=== PATIENT | female | born 1970 | race Caucasian/White ===

== ENCOUNTER 2021-12-01 18:23 | Emergency (ER) | payer OTHER, SELFPAY ==
[2021-12-01 18:30] VITALS: BP 146/87; PULSE 69; RESP 16; TEMP 36.7; O2SAT 98
--- NOTE | 2021-12-01 18:45 | ED.FEMALEGU ---
HPI - Female Genitourinary General Chief complaint: Urogenital-Female Stated complaint: poss UTI Time Seen by Provider: 12/01/21 18:45 Source: patient, RN notes reviewed and old records reviewed Mode of arrival: ambulatory Limitations: no limitations History of Present Illness HPI Narrative: 51 year old female who presents to [facility] care with complaints of having symptoms of UTI last night. Patient reports that frequency of urination, some burning with urination and some perineal pressure. Patient reports that she doesn't feel like she is emptying her bladder and she also has been having some right lower back pain which she rates as sharp rates pain 6-7. Patient denies any nausea or vomiting or diarrhea, denies any known fevers or chills. MD elicited complaint: dysuria and back pain Pertinent past history: other (uti) Severity scale (1-10): 6 Related Data Home Medications Medication Instructions Recorded Confirmed cetirizine 10 mg tablet (Zyrtec) 10 mg PO DAILY 12/01/21 12/01/21 minocycline 50 mg capsule 50 mg PO DAILY 12/01/21 12/01/21 montelukast 10 mg tablet 10 mg PO POST-TRANSFUSION 12/01/21 12/01/21 progesterone micronized 200 mg See Rx Instructions .Route .COMPLEX 12/01/21 12/01/21 capsule trazodone 100 mg tablet See Rx Instructions .Route 12/01/21 12/01/21 .COMPLEX PRN sleep Allergies Allergy/AdvReac Type Severity Reaction Status Date / Time No Known Allergies Allergy Verified 12/01/21 18:43 Review of Systems Review of Systems: CONSTITUTIONAL: Denies fever, chills, or sweats. EYES: Denies visual changes, redness, or discharge. ENT: Denies rhinorrhea, congestion, sore throat, or otalgia. CARDIOVASCULAR: Denies chest pain, palpitations, or edema. RESPIRATORY: Denies cough or dyspnea. GASTROINTESTINAL: Denies abdominal pain, nausea, vomiting, or diarrhea. GENITOURINARY:Positive for dysuria visible hematuria.perineal pressure SKIN: Denies rash or itching. MUSCULOSKELETAL: reports right lower back pain,no joint pain, or myalgia. NEUROLOGIC: Denies headache, numbness, or weakness. PSYCHIATRIC: Denies anxiety or depression. All systems reviewed & are unremarkable except as noted in HPI and below [facility] Past Medical History Medical History (Updated 12/02/21 @ 00:01 by Keon Barnhart) UTI (urinary tract infection) Surgical History Surgical History (Updated 12/01/21 @ 19:13 by Miriam Zimmer NP) Hx of right knee surgery S/P foot surgery, right Family History Family History Grandparent Family history of heart disease in male family member before age 55 Other Family history of arthritis Social History Social History (Updated 12/01/21 @ 19:13 by Miriam Zimmer NP) Smoking status: Never smoker Alcohol intake: never Substance use type: does not use Living arrangements: with family Gender identity (if verbalized by the patient): Female Comments At time of signature, agree with nursing past medical, surgical, social and family history. There is no relevant family history pertinent to the presenting complaint Exam Narrative: GENERAL: Well-appearing, well-nourished, and in no acute distress. HEAD: Normocephalic, atraumatic. EYES: PERRLA and EOMI. ENT: Nares clear, no rhinorrhea or epistaxis. Mucous membranes moist.TM's normal throat pink nothroat swelling or lesions NECK: Supple.no lymphadenopathy CHEST: Clear to auscultation. No respiratory distress.SAO2 98% on room air HEART: Regular rate and rhythm. No murmur heard. Normal peripheral pulses. ABDOMEN: Soft, nontender, nondistended, normal active bowel sounds.no suprapubic pain does have perineal pressure and some right lower back discomfort non radiating EXTREMITIES: Normal range of motion. No edema. SKIN: Warm, dry, no rash. NEURO: No focal deficits. Alert and oriented x3. Course Course Level of Care: Express Care Visit Vital Signs Vital signs: Vital Signs Tem
== END 2021-12-01 19:05 | disposition home or self-care (01) ==
PROVIDERS: Emergency Provider Registered Nurse
DX: N39.0 Urinary tract infection, site not specified (principal)
CPT/HCPCS: 81003; 87077; 87086; 87186; 99203; G0463